=== PATIENT | male | born 1955 | race Caucasian/White ===

== ENCOUNTER → 2019-11-26 13:53 | Outpatient (CLI) | payer SELFPAY ==
--- NOTE | 2019-11-26 13:59 | XR_ITS ---
PROCEDURE: XR LUMBAR SPINE MIN 4V CLINICAL INDICATION: LUMBAGO W/SCIATICA COMPARISON: No exams were available for comparison FINDINGS: No fracture or dislocation. No lytic or blastic change. There is normal mineralization. There is mild lumbar curvature convex right. There is mild degenerative disc disease from L1-S1. Other findings:There are mild facet arthritic changes at L5-S1. There may be a pars defect on the left at L5. Incidental note is made small stones in the mid aspect of the right kidney. The cluster of stones measures 8 x 4 mm. There has been a total right hip prosthesis placement. IMPRESSION: Multilevel lumbar spondylosis. Right nephrolithiasis Dictated by: Ramiro Coulter MD 11/26/2019 14:20 Ramiro Coulter MD in [place] 11/26/2019 14:20
== END ==
PROVIDERS: PCP Family Medicine; Visit Provider Family Medicine
DX: M54.41 Lumbago with sciatica, right side (principal)
CPT/HCPCS: 72110

== ENCOUNTER → 2020-08-06 09:45 | Outpatient (POV) | payer SELFPAY ==
[2020-08-06 10:04] VITALS: BP 122/87; PULSE 74; RESP 18; O2SAT 98; BMI 42.0
--- NOTE | 2020-08-06 11:04 | HMH.PMCON ---
Assessment and Plan (1) Degenerative joint disease (DJD) of lumbar spine Status: Chronic Category: Medical Code(s): M47.816 - Spondylosis without myelopathy or radiculopathy, lumbar region (2) Lumbar radiculopathy Status: Chronic Category: Medical Code(s): M54.16 - Radiculopathy, lumbar region - Assessment and plan all Dx Assessment and Plan for all problems:: We will set the patient up for L for L5 lumbar epidural steroid injection. Patient's not on any anticoagulation therapy. I will follow up with I have him afterwards reassess his symptoms at that time he has been instructed to call the office if he has any issues prior to his next appointment. Dr. Mckeon has reviewed this note and agrees with this plan of care. This note was dictated using voice recognition software and may contain errors or omissions HPI - Data of Consult Consult date: 08/06/20 Requesting Physician: Blanca Ghosh APRN Primary Care Provider: Christopher Levi MD - Consult Narrative Reason for consult: Back pain bilateral leg pain History of present illness: Mr. Wayne is a 65 year old male who presents today for consultation in regards to his low back and leg pain. Patient has had a right hip replacement. He was still having some right-sided pain and went to a chiropractor where he got minimal relief. Patient has pain in his low back radiating down his bilateral lower extremities. Patient states that activity makes it worse. Patient's tried and failed chiropractic therapy along with medication and anti-inflammatories. Patient is interested in potential injective therapy. He does have an MRI showing degenerative changes along with disc bulge. Rates his pain today 5 out of 10 CC: Blanca Ghosh APRN [facility] History I have reviewed the patient's past medical history: Yes Medical History: Denies:: Cancer, Diabetes Mellitus Type 1, Diabetes Mellitus Type 2, MRSA *Have you ever received a pneumonia vaccine?: Yes *Have you received a flu vaccine this season?: Yes Other Medical History: Reports: Arthritis Laterality Cases: Right: Total Hip Replacement Amputation: No Fractures: No - *Social History Smoking Status: Never smoker Alcohol Intake: never *Occupational Status:: other Housing: house Household Members: spouse *Travel in the last 8 weeks: None Family Hx:: Unable to obtain Review of Systems - Review of Systems ROS General: no recent weight change, no fever, no sleep disturbances Respiratory: no cough, no shortness of air, no recurring pulmonary infections Cardiovascular/Peripheral Vascular: No chest pain, No palpitations, no edema, no shortness of breath. Gastrointestinal: no new onset incontinence, normal bowel movements reported Genitourinary: no new onset incontinence Musculoskeletal: Back pain, leg pain Psychiatric: normal mood/ affect Neurological: [denies new onset weakness in extremities], [denies new onset balance issues] Objective Vital signs: Pulse Resp BP Pulse Ox 74 18 122/87 98 08/06/20 10:04 08/06/20 10:04 08/06/20 10:04 08/06/20 10:04 Narrative: Physical Exam General: Alert and oriented x3, no acute distress, pleasant and cooperative, [on room air] Lungs: Resps E/U, Symmetrical chest expansion, Eyes: PERRL Musculoskeletal: Flexion and extension of lumbar spine somewhat guarded secondary to pain, deep tendon reflexes normal, strength in upper and lower extremities [5/5], [abnormal gait noted] Neurological: speech clear, auto 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
== END ==
PROVIDERS: PCP Family Medicine; Visit Provider Clinical Nurse Specialist Family Health
DX: M47.896 Other spondylosis, lumbar region (principal); M54.16 Radiculopathy, lumbar region
CPT/HCPCS: 99202; G0463

== ENCOUNTER 2020-08-14 13:30 | Day surgery (SDC) | payer SELFPAY ==
[2020-08-14 13:33] VITALS: BP 153/82; PULSE 76; RESP 18; TEMP 36.5; O2SAT 98; BMI 27.4
--- NOTE | 2020-08-14 13:51 | P.PCN_ITS ---
- Procedure Date: 08/14/20 Time: 13:51 Anesthesiologist:: Allen Mckeon MD Complications:: None Pre-procedure Diagnosis:: Degenerative disc disease of lumbar spine with lumbar radiculopathy symptoms Post-procedure Diagnosis:: Same Indications for Procedure:: This patient pleasant 65-year-old white male who we are treating for low back pain with lumbar radiculopathy symptoms. He has increasing pain in his back radiating down both legs. We will do a lumbar pleural steroid injection today to help with his pain symptoms. Procedure Details:: Informed consent was obtained and the risk and benefits of the procedure was explained to the patient. The patient was taken to the procedure room. The patient was placed prone on the procedure table. The patient was prepped and draped in sterile fashion. C-arm fluoroscopy was used to view the lumbar spine. Skin and subcutaneous tissues were anesthetized using lidocaine. I placed an 18-gauge epidural needle and advanced into the L4-L5 interspace using fluoroscopic guidance and [id number] to air. After confirmation of needle placement in the epidural space with dye I injected 2 mL of lidocaine 1.5 % with Depo-Medrol 80 mg. Patient tolerated the procedure well with no complications. Plan and Disposition:: We will follow-up with him in 2 weeks. Will reevaluate symptoms at that time.
[2020-08-14 13:55] VITALS: BP 132/74; PULSE 85
[2020-08-14 13:56] VITALS: BP 133/78; PULSE 74; RESP 18; O2SAT 98
[2020-08-14 14:06] VITALS: BP 132/80; PULSE 72; RESP 18; O2SAT 98
== END 2020-08-14 14:09 | disposition home or self-care (01) ==
LOC: SC.PAINP 13:31
PROVIDERS: PCP Family Medicine; Visit Provider Anesthesiology
DX: M51.16 Intervertebral disc disorders with radiculopathy, lumbar region (principal); M19.90 Unspecified osteoarthritis, unspecified site
CPT/HCPCS: 62323; J1040; Q9966

== ENCOUNTER → 2020-09-03 14:03 | Outpatient (POV) | payer SELFPAY ==
[2020-09-03 14:13] VITALS: BP 109/74; PULSE 67; RESP 18; O2SAT 97; BMI 28.2
--- NOTE | 2020-09-03 15:10 | HMH.PAINSOAP ---
[facility] Pain Management SOAP Note Subjective:: Patient is a 65-year-old white male who presents today for follow-up after lumbar epidural steroid injection. He has been treated for degenerative disc disease lumbar spine with lumbar radiculopathy symptoms. Patient reports that he only got 2 hours of relief and his pain did return. He reports his pain to be in his low back area with radiation into his bilateral hips and left ankle causing numbness and tingling. He says he also has some pain in his bilateral lateral thigh area. Patient describes his pain as throbbing and sharp in nature. He also says it is a dull ache that is constant. Movement worsens the pain. Standing and walking worsen the pain as well. He has not gotten any relief with the lumbar epidural steroid injection. Patient says that he is followed by Dr. Levi. He is inquiring about stem cell treatment to his lumbar spine. Patient has had an MRI for which we will review today. He rates his pain an 8 out of 10. Review of Systems General: No recent weight changes, no fever, no sleep disturbances Respiratory: No cough, no shortness of air, no recurring pulmonary infections Cardiovascular/peripheral vascular: No chest pain, no palpitations, no edema, no shortness of breath Gastrointestinal: No new onset incontinence, normal bowel movements reported Genitourinary: No new onset incontinence Musculoskeletal: No back pain radiating into bilateral hips and bilateral thigh. 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 Levi at this time. He says he will contact the clinic if he does decide to undergo further treatment. He would like to inquire about stem cell treatment with Dr. Levi. He has been instructed to contact clinic if he has any concerns in the future. Dr. Mckeon has reviewed this note and agrees with this plan of care. This note was dictated using voice recognition software and make contain errors or omissions. [facility] History I have reviewed the patient's past medical history: Yes Medical History: Denies:: Cancer, Diabetes Mellitus Type 1, Diabetes Mellitus Type 2, MRSA, Seizures *Have you ever received a pneumonia vaccine?: No *Have you received a flu vaccine this season?: No Other Medical History: Reports: Arthritis. Denies: Blood Transfusion Reaction Laterality Cases: Right: Total Hip Replacement Other Surgeries: Yes: Hernia Repair (as a child) Amputation: No Fractures: Yes (left leg fx with plates and screws) - *Social History Smoking Status: Never smoker Alcohol Intake: never *Occupational Status:: employed Housing: house Household Members: spouse *Travel in the last 8 weeks: None Family Hx:: Unable to obtain
== END ==
PROVIDERS: PCP Family Medicine; Visit Provider Clinical Nurse Specialist Family Health
DX: M51.16 Intervertebral disc disorders with radiculopathy, lumbar region (principal)
CPT/HCPCS: 99212; G0463

== ENCOUNTER → 2021-01-29 13:50 | Outpatient (CLI) | payer SELFPAY ==
--- NOTE | 2021-01-29 14:04 | ECG_ITS ---
APPROVED REPORT Exam: Resting ECG HR:67 bpm ECG Measurements Heart Rate 67 AXES ID 160 P 55 QRSd 102 QRS -16 QT 362 T 26 QTc 382 Conclusion Normal sinus rhythm Normal ECG Electronically signed by : Josef Fragoso MD 01/30/2021 09:12:42
== END ==
LOC: RAD 13:51 → RT 02-04 13:37
PROVIDERS: PCP Family Medicine
DX: Z01.810 Encounter for preprocedural cardiovascular examination (principal)
CPT/HCPCS: 93005

== ENCOUNTER → 2021-05-14 09:13 | Outpatient (CLI) | payer SELFPAY ==
--- NOTE | 2021-05-14 09:16 | XR_ITS ---
FINAL REPORT CLINICAL HISTORY: hip pain, rt hip replacement 1985 c/o new pain FINDINGS: RIGHT HIP Two views of the right hip were obtained. There are postoperative changes from right hip arthroplasty. There are apparent fractures of the cement adjacent to the femoral stem. There is a fracture of the wire at the greater trochanter. Rounded foreign bodies are seen overlying the mid femoral diaphysis. There are several chronic calcifications of the hip joint. IMPRESSION: Postoperative changes as detailed above. Apparent fractures of the cement adjacent to the femoral stem of uncertain clinical significance. Fracture of the wire at the greater trochanter. Reviewed, Interpreted and Dictated by Adelso Sandoval III, MD Transcribed by Lucy Cardenas Authenticated by Adelso Sandoval III, MD on 05/14/2021 10:29:46 AM [facility]
== END ==
PROVIDERS: PCP Family Medicine; Visit Provider Orthopaedic Surgery
DX: M25.551 Pain in right hip (principal)
CPT/HCPCS: 73502

== ENCOUNTER 2021-07-26 10:11 | Emergency (ER) | payer SELFPAY ==
[2021-07-26 10:20] VITALS: BP 135/81; PULSE 71; RESP 18; TEMP 36.7; O2SAT 97; BMI 26.3
--- NOTE | 2021-07-26 10:29 | HMH.EDUTC ---
[facility] [place] Disposition Clinical Impression: Encounter for laboratory testing for COVID-19 virus Disposition: Home, Self-Care Condition on Discharge: Good Instructions: Preventing the Spread of Coronavirus Discharge Instructions Additional Instructions: Drink plenty of fluids. Take tylenol for pain or fever. Return if you begin to have difficulty breathing. Follow up with your regular doctor. GO TO THE ER FOR ANY WORSENING SYMPTOMS Referrals: Christopher Levi MD [Primary Care Provider] - Time of Disposition: 10:33 Medical Decision Making - Medical Records Medical records reviewed: No: I reviewed the patient's medical records. - Néstor Inquiry Pt receiving controlled substance: No Vital Signs: 07/26/21 10:20 Temperature 98.1 F Temperature Source Oral Pulse Rate [Right] 71 Respiratory Rate 18 Blood Pressure [Right Arm] 135/81 Blood Pressure Mean [Right Arm] 99 02 Sat by Pulse Oximetry 97 Orders (Tests/Meds): ORDERS Category Date Time Status Covid-19 Nasal PCR ([facility]) Routine Lab 07/26/21 10:20 Received [facility] [place] HPI - General Stated complaint: covid test Time Seen by Provider: 07/26/21 10:29 Mode of Arrival: Ambulatory Source of Information: Patient Limitations: No Limitations Description of Symptoms (Recalled from Triage Doc. by RN): covid test for procedure. HEENT Symptoms (Recalled from RN notes): No Resp Symptoms (Recalled from RN notes): No Skin Symptoms (Recalled from RN notes): No MS Symptoms (Recalled from RN notes): No Functional Status (Recalled from RN notes): wnl - History of Present Illness Provider Complaint: He is scheduled to have a hip replacement, so he needs a covid-19 test to in preparation for that. - Related Data Home Medications Medication Instructions Recorded Confirmed No Known Home Medications 05/14/21 05/14/21 Allergies Allergy/AdvReac Type Severity Reaction Status Date / Time No Known Allergies Allergy Verified 05/14/21 09:55 - Worker's Comp Is this a Worker's Comp case?: No [facility] History - Hepatitis A Screen Drug use history?: No High risk sexual behaviors?: No History of sexually transmitted infection?: No Currently employed?: No Childcare worker?: No Do you have indoor plumbing?: Yes Do you have electricity?: Yes Attestation statement:: This patient has been screened for Hepatitis A risk factors. I have reviewed the patient's past medical history: Yes Medical History: Denies:: Cancer, Diabetes Mellitus Type 1, Diabetes Mellitus Type 2, MRSA, Seizures Other Medical History: Reports: Arthritis. Denies: Blood Transfusion Reaction Laterality Cases: Right: Total Hip Replacement Other Surgeries: Yes: Hernia Repair Amputation: No Fractures: Yes (left leg fx with plates and screws) - Social History Smoking Status: Never smoker Alcohol Intake: never Occupational Status: employed Housing: house Household Members: spouse Family Hx:: Unable to obtain ROS Obtained: Yes All systems reviewed & no additional complaints - Constitutional Constitutional: Reports system reviewed and no additional complaints, except as docu - Eyes Eyes: Reports system reviewed and no additional complaints, except as docu - ENT Ears, Nose, Mouth, and Throat: Reports system reviewed and no additional complaints, except as docu - Cardiovascular Cardiovascular: Reports system reviewed and no additional complaints, except as docu - Respiratory Respiratory: Reports system reviewed and no additional complaints, except as docu - Gastrointestinal Gastrointestingal: Reports: system reviewed and no additional complaints, except as docu Physical Exam - General General appearance: alert, in no apparent distress - Head Head exam: atraumatic, normocephalic, normal inspection - Eye Eye exam: Present: normal appearance, PERRL, EOMI - ENT ENT exam: Present: normal exam, normal oropharynx, mucous membranes moist, TM's normal bilaterally, normal
[2021-07-26 10:35] VITALS: BP 135/81; PULSE 71; RESP 18; TEMP 36.7
== END 2021-07-26 10:38 | disposition home or self-care (01) ==
PROVIDERS: Emergency Provider Nurse Practitioner Family; PCP Family Medicine
DX: Z03.89 Encounter for observation for other suspected diseases and conditions ruled out (principal); Z20.822 Contact with and (suspected) exposure to COVID-19; Z96.641 Presence of right artificial hip joint
CPT/HCPCS: 99213; C9803; G0463; U0003; U0005

== ENCOUNTER 2024-04-30 20:39 | Emergency (ER) | payer SELFPAY ==
[2024-04-30 20:40] VITALS: BP 145/87; PULSE 67; RESP 18; TEMP 37.4; O2SAT 97; BMI 28.2
[2024-04-30] MEDS: ACETAMINOPHEN 1,000MG/100ML VIAL 1000 MG IV (20:58)
[2024-04-30] MEDS: 0.9 % SODIUM CHLORIDE 1000ML 1,000 ML 999 ML IV (20:58)
[2024-04-30] MEDS: KETOROLAC 30MG/ML VIAL 15 MG IV (20:59)
--- NOTE | 2024-04-30 21:08 | ED_ITS ---
Discharge Plan Disposition Patient Disposition: Xfer Short-Term Hosp Prescriptions Prescriptions: No Action No Known Home Medications Referrals Follow up/Referrals: Christopher Levi MD [Primary Care Provider] - See instructions Clinical Impressions Clinical Impression: Calcium ureterolithiasis, Hydronephrosis, NEELAM (acute kidney injury) Stand Alone Forms Stand Alone Forms: Transfer Record - ED Print Language Print Language: Mongolian Discharge ED Provider: Jarod Schaefer General Adult HPI <Jarod Schaefer MD - Last Filed: 04/30/24 22:50> General Chief complaint: Abdominal Pain Stated complaint: abd pain Time Seen by Provider: 04/30/24 20:44 History of Present Illness HPI narrative: Please note that above description of symptoms, in this electronic medical record under categorization of recalled from ER triage doctor by RN are reflective of an initial nursing assessment, however, is not reflective of my full history and physical exam that was personally taken and clarified. Consequentially, this preceding description of symptoms, which may include the patient's categorized chief complaint in the EMR, do not reflect my personal clinical impression, and the ultimate description of history of present illness and patient stated complaints should be deferred to this section of the note. Unless stated otherwise or congruent with this section of the note, additional signs, symptoms, or incongruence should be interpreted as inaccurate with my clinical impression. Related Data Home Medications ?Medication ?Instructions ?Recorded ?Confirmed No Known Home Medications 05/14/21 05/14/21 Allergies Allergy/AdvReac Type Severity Reaction Status Date / Time No Known Allergies Allergy Verified 05/14/21 09:55 PFSH <Jarod Schaefer MD - Last Filed: 04/30/24 22:50> [facility] Disclaimer: The information contained in this section may have been updated after the patient was seen, as this information can be updated by other users. Social History Smoking Status: Never smoker alcohol intake: never current occupational status: employed Travel in the last 8 weeks: None household members: spouse housing: house current occupational exposures/hazards: No caffeine: Yes Have you lived/traveled outside [place] in past 30 days?: No Contact w/someone who lives/traveled outside US past 30 days?: No Exposure to someone with infectious disease in past 14 days?: No Do you have a fever (greater than 100.4 F or 38 C)?: No Have you tested positive for COVID-19: No Exposed to someone with COVID-19 in past 14 days?: No Do you have a sore throat?: No Do you have a cough?: No Do you have any weakness?: No Do you have any diarrhea?: No Are you experiencing any unusual bleeding?: No Do you have any muscle aches/pain?: No Do you have any abdominal pain?: Yes Are you experiencing loss of taste or smell?: No Other Medical History Have you received the Flu Vaccine for this season: No Have you received the Pneumonia Vaccine: No <Jarod Schaefer MD - Last Filed: 04/30/24 22:50> ROS Obtained: Yes All systems reviewed & no additional complaints except as documented Physical Exam <Jarod Schaefer MD - Last Filed: 04/30/24 22:50> General General appearance: alert Head Head exam: atraumatic and normocephalic Eye Eye exam: Present normal appearance, PERRL and EOMI Neck Neck exam: Present normal inspection, full ROM and trachea midline Respiratory Respiratory exam: Absent respiratory distress, wheezes, stridor, accessory muscle use or prolonged expiratory phase Cardiovascular Cardiovascular exam: Present other (Pulses equal symmetric in upper and lower extremities) Abdominal Exam Abdominal exam: Present soft and tenderness; Absent distention, guarding, rebound, rigidity or pulsatile mass Abdominal tenderness: Present RUQ and epigastrium Extremities Exam Extremities exam: Absent edema Back Exam Back exam: Present CVA tenderness (R); Absent CVA tenderness (L) Neurological Exam Neurological exam: Present alert, oriented X3 and CN II-XII intact; Absent motor sensory deficit Skin Skin exam: Present warm and dry; Absent diaphoresis or erythema Medical Decision Making <Jarod Schaefer MD - Last Filed: 04/30/24 22:50> Medical Records Medical records reviewed: Yes I reviewed the patient's medical records. Screening: Per USPSTF and CDC recommendations, given the prevalence of disease in our region, it is our hospital?s policy to screen for HIV and viral Hepatitis for all patients aged 18 and over and those with ongoing risk factors. Néstor Inquiry Pt receiving controlled substance: No Néstor was queried for this patient: No Vital Signs: 04/30/24 20:40 Temperature 99.4 F Temperature Source Axillary Pulse Rate [Right Radial] 67 Respiratory Rate 18 Blood Pressure [Left Arm] 145/87 H Blood Pressure Mean [Left Arm] 106 Blood Pressure Source [Left Arm] Automatic Cuff Blood Pressure Position [Left Arm] Sitting 02 Sat by Pulse Oximetry 97 Oxygen Delivery Method Room Air Lab Data Lab Results 04/30/24 20:49: WBC 10.4, RBC 4.90, Hgb 11.7 L, Hct 38.1 L, MCV 77.8 L, MCH 23.9 L, MCHC 30.7 L, RDW 16.7, Plt Count 333, MPV 10.0, Neut % (Auto) 80.0, Lymph % (Auto) 14.7, [place] % (Auto) 3.8, Eos % (Auto) 0.7, Baso % (Auto) 0.5, Neut # (Auto) 8.3 H, Lymph # (Auto) 1.5, [place] # (Auto) 0.4, Eos # (Auto) 0.1, Baso # (Auto) 0.1, PT 10.4, INR 0.94, APTT 23.7, Sodium 139, Potassium 4.4, Chloride 102, Carbon Dioxide 25, Anion Gap 16.4 H, BUN 26 H, Creatinine 1.10, Estimated Creat Clear 73, Estimated GFR 67, Est GFR ( Amer) 81, Glucose 160 H, L actate 2.9 H, Calcium 9.3, Total Bilirubin 0.3, AST 43, ALT 32, Alkaline Phosphatase 75, Total Protein 7.7, Albumin 4.8, Globulin 2.9, Albumin/Globulin Ratio 1.7, Lipase 123, HCV Ab ANALILIA w/Rflx PCR Qn Negative, HIV Ag/Ab Combo Qual Negative 04/30/24 23:19: Urine Color Yellow, Urine Appearance Clear, Urine pH 6.5, Ur Specific [place] 1.020, Urine Protein Trace, Urine Glucose (UA) Negative, Urine Ketones Trace, Urine Blood 3+ A, Urine Nitrate Negative, Urine Bilirubin Negative, Urine Urobilinogen 0.2, Ur Leukocyte Esterase Negative, Urine RBC Tntc, Urine WBC 3-5, Ur Squamous Epith Cells 5-10, Urine Bacteria 2+ 04/30/24 20:49 04/30/24 20:49 Orders (Tests/Meds): ED MEDICATIONS Generic Name Dose Route Start Last Admin Trade Name Freq PRN Reason Stop Dose Admin Tamsulosin HCl 0.4 mg 05/01/24 00:10 Tamsulosin 0.4mg Capsule PO 05/01/24 00:11 ONCE ONE Discontinued Medications Generic Name Dose Route Start Last Admin Trade Name Delicia PRN Reason Stop Dose Admin Acetaminophen 1,000 mg 04/30/24 20:51 04/30/24 20:58 Acetaminophen 1,000mg/100ml Vial IV 04/30/24 20:52 1,000 mg ONCE ONE Administration Hydromorphone HCl 0.5 mg 04/30/24 22:24 04/30/24 22:35 Hydromorphone 2mg/Ml Syringe IV 04/30/24 22:25 0.5 mg ONCE ONE Administration Sodium Chloride 1,000 mls @ 999 mls/hr 04/30/24 20:51 04/30/24 20:58 Sod Chlor 0.9% 1000ml Bag IV 04/30/24 21:51 999 mls/hr .Q1H1M ONE Administration Iopamidol 75 ml 04/30/24 21:43 04/30/24 21:44 Iopamidol-370 (76%);100ml Bottle IV 04/30/24 21:44 75 ml ONCE ONE Administration Ketorolac Tromethamine 15 mg 04/30/24 20:51 04/30/24 20:59 Ketorolac 30mg/Ml Vial IV 04/30/24 20:52 15 mg ONCE ONE Administration Ondansetron HCl 4 mg 04/30/24 22:24 04/30/24 22:35 Ondansetron 4mg/2ml Vial IV 04/30/24 22:25 4 mg ONCE ONE Administration Sodium Chloride 10 ml 04/30/24 21:43 04/30/24 21:44 Sodium Chloride 0.9% 10ml Syr (Rad Only) IV 04/30/24 21:44 10 ml ONCE ONE Administration ORDERS Category Date Time Status CT abdomen pelvis w con Stat Cat Scan 04/30/24 21:27 Completed POCUS Point of Care (ER Only) Stat Exams 04/30/24 20:51 Ordered Complete Blood Count Auto Diff Stat Lab 04/30/24 20:49 Completed Comprehensive Metabolic Panel Stat Lab 04/30/24 20:49 Completed HIV Combo Stat Lab 04/30/24 20:49 Completed Hepatitis C Ab Qual. W/ RFX Stat Lab 04/30/24 20:49 Completed Lactic Acid Stat Lab 04/30/24 20:49 Completed Lipase Stat Lab 04/30/24 20:49 Completed PT INR [Prothrombin Time INR] Stat Lab 04/30/24 20:49 Completed PTT [Activated Partial Thrombo Time] Stat Lab 04/30/24 20:49 Completed Urinalysis and Microscopic Stat Lab 04/30/24 23:19 Completed Urine Culture Stat Micro 04/30/24 23:19 Received Venous Blood Gas Stat RT 04/30/24 20:52 Ordered Medical Decision Narrative: This is a 69-year-old male no relevant medical history and surgical history significant for abdominal hernia repair presenting with abdominal pain. Patient states that around 5 PM today, 04/30, he started having abdominal/flank pain on the right side. Severe, 9 out of 10, radiates from his right flank into his right abdomen. No fevers or chills, nausea or vomiting, urinary symptoms, constipation, diarrhea, vomiting, or any other concerns. Last bowel movement was today and normal. History was obtained via conversation with patient. On arrival, patient hemodynamically stable, alert, oriented x4, appropriate, GCS 15, moving all extremities spontaneously, pupils equal and reactive to light. Full physical exam performed and significant for well-appearing male no acute distress. Abdomen is tender, but not peritonitic. No obvious outward signs of abnormality. No distention. He does have mild right flank tenderness. Anne sign negative, McBurney's point tenderness negative.. Differential includes PUD, gastritis, enteritis, gastroenteritis, pancreatitis, SBO, colitis, diverticulitis, nephrolithiasis, UTI, cholecystitis, choledocholithiasis, appendicitis, torsion, hepatitis, aortic pathology, mesenteric ischemia among others. Patient placed on continuous cardiac monitoring and continuous pulse ox with initial blood pressure 145/87, heart rate 67, saturation 97% on room air. Patient was given Toradol and acetaminophen, fluids for symptomatic management and correction of underlying abnormalities. Workup independently interpreted and significant for nonactionable CBC. Coags normal. Patient's lactate 2.9 with anion gap 16.4. Patient's BUN elevated 26, creatinine high end of normal at 1.1. Lipase normal at 123. Bedside [id number] ultrasound was performed and patient does have gallstone, however no secondary findings consistent with cholecystitis. Right renal ultrasound was performed and patient has large right renal cyst with what appears to be mild hydronephrosis. No stone identified. CT scan ordered. On independent interpretation of imaging, patient has 7 mm right sided proximal ureteral stone with upstream hydronephrosis. See radiology read for full review of final results. Consistent with ultrasound. On reevaluation, patient states that his pain is coming back, given 0.5 mg Dilaudid and 4 mg of Zofran to prevent vomiting. Conversation had with patient and regarding transfer to tertiary care facility with urology. They stated that they would rather go to [facility], and [facility], if at all possible. [facility] was contacted spoke to Dr. Saldana in transfer center at 2230. Images hadn't crossed over in [facility] yet, would like to see images and consult urology prior to accepting transfer. Given patient presentation, workup, history, this most likely represents obstructive nephrolithiasis. Prior to disposition, care handed off to oncoming physician. Trophy Assembler disclaimer Much of this encounter note is an electronic handicrafts teacher spoken language to printed text. Electronic handicrafts teacher of the spoken language may permit errors. Although I have reviewed the note, some errors may still exist. <Roman Manning MD - Last Filed: 05/01/24 00:22> Vital Signs: 04/30/24 20:40 Temperature 99.4 F Temperature Source Axillary Pulse Rate [Right Radial] 67 Respiratory Rate 18 Blood Pressure [Left Arm] 145/87 H Blood Pressure Mean [Left Arm] 106 Blood Pressure Source [Left Arm] Automatic Cuff Blood Pressure Position [Left Arm] Sitting 02 Sat by Pulse Oximetry 97 Oxygen Delivery Method Room Air Lab Data Lab Results 04/30/24 20:49: WBC 10.4, RBC 4.90, Hgb 11.7 L, Hct 38.1 L, MCV 77.8 L, MCH 23.9 L, MCHC 30.7 L, RDW 16.7, Plt Count 333, MPV 10.0, Neut % (Auto) 80.0, Lymph % (Auto) 14.7, [place] % (Auto) 3.8, Eos % (Auto) 0.7, Baso % (Auto) 0.5, Neut # (Auto) 8.3 H, Lymph # (Auto) 1.5, [place] # (Auto) 0.4, Eos # (Auto) 0.1, Baso # (Auto) 0.1, PT 10.4, INR 0.94, APTT 23.7, Sodium 139, Potassium 4.4, Chloride 102, Carbon Dioxide 25, Anion Gap 16.4 H, BUN 26 H, Creatinine 1.10, Estimated Creat Clear 73, Estimated GFR 67, Est GFR ( Amer) 81, Glucose 160 H, L actate 2.9 H, Calcium 9.3, Total Bilirubin 0.3, AST 43, ALT 32, Alkaline Phosphatase 75, Total Protein 7.7, Albumin 4.8, Globulin 2.9, Albumin/Globulin Ratio 1.7, Lipase 123, HCV Ab ANALILIA w/Rflx PCR Qn Negative, HIV Ag/Ab Combo Qual Negative 04/30/24 23:19: Urine Color Yellow, Urine Appearance Clear, Urine pH 6.5, Ur Specific [place] 1.020, Urine Protein Trace, Urine Glucose (UA) Negative, Urine Ketones Trace, Urine Blood 3+ A, Urine Nitrate Negative, Urine Bilirubin Negative, Urine Urobilinogen 0.2, Ur Leukocyte Esterase Negative, Urine RBC Tntc, Urine WBC 3-5, Ur Squamous Epith Cells 5-10, Urine Bacteria 2+ Orders (Tests/Meds): ED MEDICATIONS Generic Name Dose Route Start Last Admin Trade Name Fresebastian PRN Reason Stop Dose Admin Tamsulosin HCl 0.4 mg 05/01/24 00:10 Tamsulosin 0.4mg Capsule PO 05/01/24 00:11 ONCE ONE Discontinued Medications Generic Name Dose Route Start Last Admin Trade Name Delicia PRN Reason Stop Dose Admin Acetaminophen 1,000 mg 04/30/24 20:51 04/30/24 20:58 Acetaminophen 1,000mg/100ml Vial IV 04/30/24 20:52 1,000 mg ONCE ONE Administration Hydromorphone HCl 0.5 mg 04/30/24 22:24 04/30/24 22:35 Hydromorphone 2mg/Ml Syringe IV 04/30/24 22:25 0.5 mg ONCE ONE Administration Sodium Chloride 1,000 mls @ 999 mls/hr 04/30/24 20:51 04/30/24 20:58 Sod Chlor 0.9% 1000ml Bag IV 04/30/24 21:51 999 mls/hr .Q1H1M ONE Administration Iopamidol 75 ml 04/30/24 21:43 04/30/24 21:44 Iopamidol-370 (76%);100ml Bottle IV 04/30/24 21:44 75 ml ONCE ONE Administration Ketorolac Tromethamine 15 mg 04/30/24 20:51 04/30/24 20:59 Ketorolac 30mg/Ml Vial IV 04/30/24 20:52 15 mg ONCE ONE Administration Ondansetron HCl 4 mg 04/30/24 22:24 04/30/24 22:35 Ondansetron 4mg/2ml Vial IV 04/30/24 22:25 4 mg ONCE ONE Administration Sodium Chloride 10 ml 04/30/24 21:43 04/30/24 21:44 Sodium Chloride 0.9% 10ml Syr (Rad Only) IV 04/30/24 21:44 10 ml ONCE ONE Administration ORDERS Category Date Time Status CT abdomen pelvis w con Stat Cat Scan 04/30/24 21:27 Completed POCUS Point of Care (ER Only) Stat Exams 04/30/24 20:51 Ordered Complete Blood Count Auto Diff Stat Lab 04/30/24 20:49 Completed Comprehensive Metabolic Panel Stat Lab 04/30/24 20:49 Completed HIV Combo Stat Lab 04/30/24 20:49 Completed Hepatitis C Ab Qual. W/ RFX Stat Lab 04/30/24 20:49 Completed Lactic Acid Stat Lab 04/30/24 20:49 Completed Lipase Stat Lab 04/30/24 20:49 Completed PT INR [Prothrombin Time INR] Stat Lab 04/30/24 20:49 Completed PTT [Activated Partial Thrombo Time] Stat Lab 04/30/24 20:49 Completed Urinalysis and Microscopic Stat Lab 04/30/24 23:19 Completed Urine Culture Stat Micro 04/30/24 23:19 Received Venous Blood Gas Stat RT 04/30/24 20:52 Ordered Medical Decision Narrative: This is a 69-year-old male no relevant medical history and surgical history significant for abdominal hernia repair presenting with abdominal pain. Patient states that around 5 PM today, 04/30, he started having abdominal/flank pain on the right side. Severe, 9 out of 10, radiates from his right flank into his right abdomen. No fevers or chills, nausea or vomiting, urinary symptoms, constipation, diarrhea, vomiting, or any other concerns. Last bowel movement was today and normal. History was obtained via conversation with patient. On arrival, patient hemodynamically stable, alert, oriented x4, appropriate, GCS 15, moving all extremities spontaneously, pupils equal and reactive to light. Full physical exam performed and significant for well-appearing male no acute distress. Abdomen is tender, but not peritonitic. No obvious outward signs of abnormality. No distention. He does have mild right flank tenderness. Anne sign negative, McBurney's point tenderness negative.. Differential includes PUD, gastritis, enteritis, gastroenteritis, pancreatitis, SBO, colitis, diverticulitis, nephrolithiasis, UTI, cholecystitis, choledocholithiasis, appendicitis, torsion, hepatitis, aortic pathology, mesenteric ischemia among others. Patient placed on continuous cardiac monitoring and continuous pulse ox with initial blood pressure 145/87, heart rate 67, saturation 97% on room air. Patient was given Toradol and acetaminophen, fluids for symptomatic management and correction of underlying abnormalities. Workup independently interpreted and significant for nonactionable CBC. Coags normal. Patient's lactate 2.9 with anion gap 16.4. Patient's BUN elevated 26, creatinine high end of normal at 1.1. Lipase normal at 123. Bedside [id number] ultrasound was performed and patient does have gallstone, however no secondary findings consistent with cholecystitis. Right renal ultrasound was performed and patient has large right renal cyst with what appears to be mild hydronephrosis. No stone identified. CT scan ordered. On independent interpretation of imaging, patient has 7 mm right sided proximal ureteral stone with upstream hydronephrosis. See radiology read for full review of final results. Consistent with ultrasound. On reevaluation, patient states that his pain is coming back, given 0.5 mg Dilaudid and 4 mg of Zofran to prevent vomiting. Conversation had with patient and regarding transfer to tertiary care facility with urology. They stated that they would rather go to [facility], and [facility], if at all possible. [facility] was contacted spoke to Dr. Saldana in transfer center at 2230. Images hadn't crossed over in [facility] yet, would like to see images and consult urology prior to accepting transfer. Given patient presentation, workup, history, this most likely represents obstructive nephrolithiasis. Prior to disposition, care handed off to oncoming physician. Trophy Assembler disclaimer Much of this encounter note is an electronic handicrafts teacher spoken language to printed text. Electronic handicrafts teacher of the spoken language may permit errors. Although I have reviewed the note, some errors may still exist. Manning: Upon my assumption of care patient is stable, resting more comfortably after receiving pain medications. I reviewed labs and imaging and agree with the assessment and plan from Dr. Schaefer. I spoke with Dr. Saldana at [facility] center who has reviewed the case with urology. She wanted to follow-up with the urinalysis results, I reviewed these which do not demonstrate any findings of infection. Despite patient's elevated lactate and findings of prerenal azotemia as well as his need for continued narcotic medications for pain control, they are unable to accept the patient since he is not a surgical emergency at this time. I discussed this with family, they are agreeable to possible transfer to [place]. We reached out to [facility], I spoke with Dr. Pham with urology and reviewed labs and imaging, he agreed to consult on the patient if the patient is excepted to the hospitalist service. Dr. Pham did request that the patient remain n.p.o. for anticipated procedure. With his agreement, I did administer tamsulosin to the patient. I also spoke with STEVEN Stone with the hospitalist service who accepted the patient to [facility] for continued management under Dr. Coronel. They have provided a bed assignment. I recommended ambulance transportation for continued pain control and monitoring, however they refused this and patient wants to go POV. Since patient is hemodynamically stable and has low risk of immediate decompensation, I believe this is reasonable though it is not preferred. I have explained this to the patient. I also explained he needs to not eat or drink anything on the way, not make stops along the way, and go directly to [facility] for admission. 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 IV was removed. Patient was transferred by private vehicle in stable condition Procedures <Jarod Schaefer MD - Last Filed: 04/30/24 22:50> Limited Ultrasound Indication:: Limited RUQ ultrasound Indication: Abdominal pain Identified structures: -Gallbladder -Gallbladder wall -Common bile duct -Liver Findings: Sonographic Anne sign: Absent Gallstones: Present Sludge: Absent Pericholecystic fluid: Absent Maximal GB wall thickness (mm) (normal is </= 3mm): Normal Common bile duct width (mm) (normal is </= 6mm): Normal Gallbladder width (cm) (normal is < 4cm): Normal Gallbladder length (cm) (normal is < 10cm): Normal Impression: Cholelithiasis without secondary findings of cholecystitis Images were saved to permanent archive The study was technically adequate CPT 90717-84 This study was performed by me, and I personally interpreted all images/videos. Based on my clinical judgement, these images were adequate and did not necessitate further imaging. Views:: Limited renal ultrasound Indication: A focused ultrasound of the kidneys was performed to evaluate for hydronephrosis and nephrolithiasis. The ultrasound was performed with the following indications, as noted in the H&P: Right flank pain Identified structures: Right kidney Findings: Right renal cyst, simple Right sided mild to moderate hydronephrosis Impression: Right-sided hydronephrosis consistent with downstream stone. No obvious stone on this exam. CT required for further eval Images were saved to permanent archive The study was technically adequate CPT: 44967-25 This study was performed by ok, and I personally interpreted all images/videos. Based on my clinical judgement, these images were adequate and did not necessitate further imaging. Critical Care <Jarod Schaefer MD - Last Filed: 04/30/24 22:50> Critical Care Time Critical Care Time: Yes (renal) Attestation: On 04/30/24, the high probability of a clinically significant, sudden or life threatening deterioration of the following system(s) required my full and direct attention, intervention and personal management. The time I documented below is in addition to time spent performing reported procedures but includes the following listed in this critical care notation. Total Time Total Critical Care Time: 35
[2024-04-30 21:09] LABS: Basophils # 0.1 K/mm3 (0-0.2); Basophils % 0.5 % (0.1-2.0); Eosinophils # 0.1 K/mm3 (0.0-0.4); Eosinophils % 0.7 % (0.1-12.0); Hematocrit 38.1 % (42.0-52.0); Hemoglobin 11.7 g/dL (14.1-18.0); Lymphocytes # 1.5 K/mm3 (0.7-4.5); Lymphocytes % 14.7 % (10-50); Mean Corpuscular HGB Conc 30.7 g/dL (31.8-35.4); Mean Corpuscular Hemoglobin 23.9 pg (27.0-31.2); Mean Corpuscular Volume 77.8 fl (80-94); Monocytes # 0.4 K/mm3 (0.1-1.0); Monocytes % 3.8 % (1.7-9.3); Neutrophils # 8.3 K/mm3 (1.8-7.8); Platelet Count 333 K/mm3 (142-424); Red Cell Distribution Width 16.7 % (11.5-17.5); White Blood Count 10.4 K/mm3 (4.8-10.8)
[2024-04-30 21:11] LABS: Alanine Aminotransferase 32 U/L (12-78); Albumin Level 4.8 g/dl (3.5-5.0); Albumin/Globulin Ratio 1.7 (1.1-1.8); Alkaline Phosphatase 75 U/L (38-126); Anion Gap 16.4 mEq/L (5-15); Aspartate Amino Transferase 43 U/L (17-59); Bilirubin,Total 0.3 mg/dl (0.2-1.3); Blood Urea Nitrogen 26 mg/dl (9-20); Calcium 9.3 mg/dl (8.4-10.2); Carbon Dioxide 25 mmol/L (22.0-30.0); Chloride 102 mmol/L (98-107); Creatinine Clearance Estimated 73 mL/min (50-200); Estimated Glomerular Filt Rate 67 ml/min (>60); GFR (African American) 81 ML/MIN (>60); Globulin 2.9 g/dL (1.3-3.2); Glucose 160 mg/dl (74-100); Lipase 123 U/L (23-300); Potassium 4.4 mmoL/L (3.5-5.1); Sodium 139 mmol/L (136-145); Total Protein,Serum 7.7 g/dl (6.3-8.2)
[2024-04-30 21:12] LABS: Lactic Acid 2.9 mmol/L (0.7-2.1)
[2024-04-30 21:17] LABS: Activated Partial Thrombo Time 23.7 seconds (22.5-28.5); INR 0.94 (0.9-1.1); Prothrombin Time 10.4 seconds (9.2-12.1)
--- NOTE | 2024-04-30 21:27 | CT_ITS ---
PROCEDURE INFORMATION: Exam: CT Abdomen And Pelvis With Contrast Exam date and time: 04/30/2024 9:43 PM Age: 69 years old Clinical indication: Abdominal pain; Additional info: R abdominal and flank pain, neg ruq US TECHNIQUE: Imaging protocol: Computed tomography of the abdomen and pelvis with contrast. Radiation optimization: All CT scans at this facility use at least one of these dose optimization techniques: automated exposure control; mA and/or kV adjustment per patient size (includes targeted exams where dose is matched to clinical indication); or iterative reconstruction. Contrast material: ISOVUE; Contrast volume: 75 ml; Contrast route: IV; COMPARISON: 1. CR XR HIP RT 2-3V W/PELVIS 05/14/2021 9:19 AM 2. CR XR LUMBAR SPINE MIN 4V 11/26/2019 2:01 PM FINDINGS: Lungs: Scattered areas of bronchial wall thickening which are likely chronic inflammatory. A few areas of subpleural reticulation are noted, nonspecific. Diaphragm: There is a moderate-sized left Bochdalek hernia. Liver: Normal. Gallbladder and biliary ducts: No acute process. Pancreas: Normal. Spleen: Normal. Adrenal glands: The adrenal glands appear normal. Kidneys and ureters: There is moderate right hydroureteronephrosis extending to a 6 mm proximal ureteral calculus (image 48 series 3). There is a right-sided obstructive uropathy. Stomach and bowel: There are scattered colonic diverticula. Appendix: No evidence of appendicitis. Intraperitoneal space: Unremarkable. Vasculature: There is atherosclerotic disease of the visualized aorta and its major branch vessels. Lymph nodes: No lymphadenopathy. Urinary bladder: There is moderate distention of the urinary bladder. Reproductive: No acute process. Bones/joints: There is diffuse degenerative disease of the visualized osseous structures. Status post right hip arthroplasty with associated streak artifact which limits evaluation of the pelvis. Soft tissues: There is a small fat containing umbilical hernia. IMPRESSION: There is moderate right hydroureteronephrosis extending to a 6 mm proximal ureteral calculus (image 48 series 3).
--- NOTE | 2024-04-30 21:39 | PC.NURSE ---
pt to CT at this time
[2024-04-30] MEDS: IOPAMIDOL-370 (76%);100ML BOTTLE 75 ML IV (21:44)
[2024-04-30] MEDS: SODIUM CHLORIDE 0.9% 10ML SYR (RAD ONLY) 10 ML IV (21:44)
--- NOTE | 2024-04-30 22:14 | PC.NURSE ---
Called at 22:14, said they would call back
[2024-04-30] MEDS: HYDROMORPHONE 2MG/ML SYRINGE 0.5 MG IV (22:35)
[2024-04-30] MEDS: ONDANSETRON 4MG/2ML VIAL 4 MG IV (22:35)
[2024-04-30 23:05] LABS: HIV Combo NEGATIVE (Negative)
[2024-04-30 23:23] LABS: Microscopic, Urine URINE MICROSCOPIC (MICROSCOPIC)
[2024-04-30 23:27] LABS: Appearance,Urine CLEAR (Clear); Bilirubin,Urine Negative (Negative); Blood, Urine 3+ (Negative); Color,Urine YELLOW (Yellow); Glucose,Urine (UA) Negative (Negative); Ketones,Urine TRACE (Negative); Leukocyte Esterase,Urine Negative (Negative); Nitrate,Urine Negative (Negative); PH,Urine 6.5 (5.0-8.5); Protein,Urine TRACE (Negative); Urobilinogen,Urine 0.2 EU/dl (0.2)
[2024-04-30 23:45] LABS: Bacteria,Urine 2+ /lpf; RBC,Urine TNTC #/hpf (0-3)
--- NOTE | 2024-04-30 23:46 | PC.NURSE ---
called [facility] at 23:46 for a transfer to [place]
[2024-04-30 23:48] LABS: Hepatitis C Ab Qual. W/ RFX NEGATIVE (Negative)
[2024-05-01] MEDS: TAMSULOSIN 0.4MG CAPSULE 0.4 MG PO (00:18)
[2024-05-01 00:30] VITALS: BP 120/84; PULSE 84; RESP 18; TEMP 36.6; O2SAT 97
--- NOTE | 2024-05-01 00:32 | PC.NURSE ---
report called to Meaghan HOLDEN at [facility]
[2024-05-01 00:58] LABS: Reflex Lactic Add Lactic Reflex
== END 2024-05-01 00:30 | disposition short-term general hospital (02) ==
PROVIDERS: Emergency Provider Emergency Medicine; PCP Family Medicine
DX: N17.9 Acute kidney failure, unspecified (principal); N13.30 Unspecified hydronephrosis; N20.1 Calculus of ureter; R10.13 Epigastric pain; R10.11 Right upper quadrant pain
CPT/HCPCS: 74177; 80053; 81001; 83605; 83690; 85025; 85610; 85730; 86803; 87086; 87389; 96361; 96374; 96375; 99291; J0131; J1171; J1885; J2405; J7030; Q9967